=== PATIENT | female | born 1975 | race Native Hawaiian/Other Pacific Islander ===

== ENCOUNTER 2020-02-13 10:09 | Day surgery (SDC) | payer OTHER ==
[~2020-02-13 10:09] MED LIST: ceFAZolin/STERILE WATER 2 GM/20 ML SYRINGE IV NR
[2020-02-13] MEDS ORDERED: LACTATED RINGERS 1,000 ML IV SCH (10:30)
[2020-02-13] MEDS ORDERED: LACTATED RINGERS 1,000 ML ONE (10:36)
[2020-02-13] MEDS ORDERED: HYDROmorphone 1 MG/1 ML INJ ONE (11:32)
[2020-02-13] MEDS ORDERED: propofoL 200 MG/20 ML VIAL IV ONE ×2 (11:32→13:28)
[2020-02-13] MEDS ORDERED: LIDOCAINE MPF (2%) 20 MG/1 ML VIAL 5 ML ONE (11:32)
[2020-02-13] MEDS ORDERED: fentaNYL 100 MCG/2 ML INJ ONE (11:34)
[2020-02-13] MEDS ORDERED: MIDAZOLAM 2 MG/2 ML INJ ONE (11:34)
[2020-02-13] MEDS ORDERED: BUPIVACAINE-EPINEPHRINE/PF 0.5%-1:200,000 (10 ML) VIAL INFILTRATI ONE (11:35)
[2020-02-13] MEDS ORDERED: dexAMETHasone 4 MG/ML VIAL ONE (11:35)
[2020-02-13] MEDS ORDERED: HYDROmorphone 1 MG/1 ML INJ IV PRN ×2 (11:52)
[2020-02-13] MEDS ORDERED: ONDANSETRON 4 MG/2 ML INJ IV PRN (11:52)
--- NOTE | 2020-02-13 11:53 | Anesthesia Day of Surgery ---
Anesthesia Day of Surgery - Day of Surgery Patient Examined: Yes Patient H&P Reviewed: Yes Patient is NPO: Yes
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
[2020-02-13] MEDS ORDERED: SODIUM CHLORIDE 0.9% IRR 1,500 ML BOTTLE IR ONE (14:06)
[2020-02-13] MEDS ORDERED: PHENYLEPHRINE/NS 1,000 MCG/10 ML SYRINGE (OR USE) IV ONE (14:22)
[2020-02-13] MEDS ORDERED: KETOROLAC 30 MG/1 ML INJ ONE (14:42)
[2020-02-13] MEDS ORDERED: ONDANSETRON 4 MG/2 ML INJ ONE (14:42)
--- NOTE | 2020-02-13 15:07 | Procedure Note ---
Date of procedure: 02/13/20 Pre-op diagnosis: Displaced right humerus fracture Post-op diagnosis: same Procedure: Closed reduction and insertion of intramedullary nail right proximal humerus Procedure The patient was brought to the OR after interscalene nerve block in pre op holding and placed on the table supine following induction with MAC anesthesia she was placed in the beachchair position. The right upper extremity was then prepped and draped in the usual sterile manner, a timeout procedure was done to identify the patient and the correct operative site. An incision was made over the greater tuberosity and was taken down sharply through skin and subcutaneous the deltoid was split along with the rotator cuff tendon. A threaded guidewire was inserted through a proximal fragment across the fracture site into the distal humeral canal, The canal was reamed to a 11.5 mm diameter this was followed by insertion of the long humeral nail measuring 8mm x 260 mm length under C-arm fluoroscopy. Using the targeting device the proximal screws were inserted into the humeral head and this was followed by gentle traction on the distal fragment along with insertion of 1 distal interlocking screw. Again AP and lateral views were obtained and showed good reduction of the fracture and placement of hardware. Following this the wound was copiously irrigated with saline solution followed by closure of the wound. Postop dressings were applied as well as an arm sling, she tolerated the procedure without complications and she was sent to postanesthesia recovery in stable condition Anesthesia: MAC, regional Surgeon: RBIDGET GOODMAN Estimated blood loss: 50-100ml Pathology: none Condition: stable Disposition: PACU
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
[2020-02-13 20:02] VITALS: BP 136/78
--- NOTE | 2020-02-14 07:20 | Post Anesthesia Evaluation ---
- Post Anesthesia Evaluation Patient Participated: Yes Airway Patent: Yes Stable Respiratory Function: Yes Nausea/Vomiting: No Temp > 96.8F: Yes Pain Manageable: Yes Adequeate Hydration: Yes Anesthesia Complications: No Block Receding Appropriately: Not Applicable Patient on Ventilator: No
== END 2020-02-13 10:10 | disposition home or self-care (01) ==
LOC: OR 10:09
PROVIDERS: ATTEND Orthopaedic Surgery
DX: S42.301A Unspecified fracture of shaft of humerus, right arm, initial encounter for closed fracture (principal); F41.9 Anxiety disorder, unspecified; G43.909 Migraine, unspecified, not intractable, without status migrainosus; J45.909 Unspecified asthma, uncomplicated; K21.9 Gastro-esophageal reflux disease without esophagitis; F32.9 Major depressive disorder, single episode, unspecified; Z90.710 Acquired absence of both cervix and uterus; Z98.891 History of uterine scar from previous surgery; Z79.899 Other long term (current) drug therapy; Z98.890 Other specified postprocedural states; Z68.35 Body mass index [BMI] 35.0-35.9, adult; X58.XXXA Exposure to other specified factors, initial encounter; Y93.89 Activity, other specified; Y92.89 Other specified places as the place of occurrence of the external cause; Y99.8 Other external cause status
CPT/HCPCS: 24516; 36415; 64415; 73060; 84132; C1713; C1769; J0690; J1100; J1170; J1885; J2250; J2370; J2405; J2704; J3010; J7120